=== PATIENT | female | born 1950 | race Caucasian/White ===

== ENCOUNTER 2017-04-30 05:55 | Inpatient (IN) | payer OTHER, MEDICARE ==
[~2017-04-30] VITALS: Ht 157.5 cm; Wt 62.1 kg
--- NOTE | ~2017-04-30 | CRIT ---
[facility] [place] [address] CRITICAL CARE NOTE Name: ALEXEY ANDREWS Room #: 438-P [facility] IN M.R.#: [id number] Admission: 04/30/17 Attend Phys: Alejandro Caruso Discharge: 05/04/17 Date of : 50 Report #: [id number] THIS REPORT FOR: //name// CC: Hospital Chart Alejandro Chavez HISTORY OF PRESENT ILLNESS: The patient is a very pleasant 67-year-old female I have been asked to see for further evaluation of nonspecific epigastric abdominal pain, which has occurred chronically. She presented to the hospital with increasing shortness of breath over the course of the last 72 hours and was found to have pneumonia and is currently being treated for this, bilateral lower lobe pneumonia. She takes no medications at home for her chronic abdominal discomfort. She claims that her epigastric and right upper quadrant pain are worse with deep inspiration. PAST MEDICAL HISTORY: Significant and includes multiple myeloma with stem cell transplant x 2, most recently May of 2012. She also had one in December of that year. Has a history of atrial fibrillation, double mastectomy, chickenpox. MEDICATION: List is long and includes Zovirax, Tylenol, AccuNeb, vitamin C, Beconase, Caltrate, Lomotil, Ativan, multivitamin, Compazine, venlafaxine, Effexor, vitamin E, Ultram, Benadryl, Colace, milk of mag, Neurontin, also hydrocodone as needed. FAMILY HISTORY: Noncontributory. SOCIAL HISTORY: She denies significant alcohol or tobacco consumption, but used to smoke. REVIEW OF SYSTEMS: Negative for weight loss, weakness or fatigue. She denies head, eyes, ears, nose or throat complaints. She denies chest pain, chest palpitation, chest pressure, cough, shortness of breath, wheezing, genitourinary, musculoskeletal or neuropsychiatric complaints beyond that mentioned above. PHYSICAL EXAMINATION: VITAL SIGNS: The patient is afebrile. Vital signs are stable. She is on oxygen by nasal cannula. HEENT: Nonicteric. NECK: No JVD, thyromegaly or bruits. CARDIOVASCULAR: Regular. LUNGS: Clear anteriorly. ABDOMEN: Soft with mild right upper quadrant and epigastric discomfort to deep palpation and with respiration. No stigmata of chronic liver disease. No abnormal masses or bruits. EXTREMITIES: Deferred. [address] [address] CRITICAL CARE NOTE Name: SUE ANDREWSBEBHARAT Lagos Room #: 438-P [facility] IN M.R.#: [id number] Admission: 04/30/17 Attend Phys: Alejandro Caruso Discharge: 05/04/17 Date of : 50 Report #: [id number] NEUROLOGIC: Deferred. RECTAL: Deferred. LABORATORY DATA: Pertinent labs include white count 11.9, hemoglobin 9.7, normal indices, platelet count 146. INR of 1.0. Blood gas, 7.49, 31.8, and 53.4 oxygen saturation. Serum chemistry notable for BUN 21, creatinine 0.9. Her liver tests were normal on April 30, lipase normal. IMAGING STUDIES: Reveal CT abdomen and pelvis with bilateral lower lobe atelectasis and pneumonitis. Gallbladder normal. ASSESSMENT AND PLAN: In summary, the patient has epigastric and right upper quadrant abdominal pain, which is chronic, but more significant with her pneumonia. I suspect her pain is likely secondary to pneumonia and would evaluate it as she improves. She does have anemia, but has had stem cell transplants in the past which may explain this. Perhaps an upper endoscopy may be reasonable once her pneumonia has resolved. I appreciate the opportunity to participate in her care. We will follow up at intervals. <ELECTRONICALLY SIGNED> By: Bhupendra Restrepo MD 05/06/17 0803 [id number] Jorge Luis Maloney MD /nt
--- NOTE | ~2017-04-30 | EKG ---
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
[2017-04-30 05:55] VITALS: BP 93/63
[~2017-04-30 05:55] MED LIST: ACYCLOVIR 400400 MG PO; ALBUTEROL2.5 MG/0.5 INH; ALPHA LIPOIC A600 M1 PO; APAP500 PO; ATIVAN0.5 MG PO; BECONASE AQ25 GM NS; BENADRYL25 MG PO; CALCIUM 600 +1 EAC1 PO; COLACE100 MG PO; COMPAZINE10 MG PO; GABAPENTIN 100100 MG PO; HYDROCODONE-AP1 EAC6 PO; LOMOTIL TABLET1 EACH PO; LYRICA 75 MG CA75 MG PO; MILK OF MA2400 MG/10 PO; MULTIVITAMIN PO; TRAMADOL 50 MG50 MG PO; VENLAFAXIN75 MG/1 T2 PO; VENLAFAXINE H37.5 MG PO; VITAMIN E400 UNI4 PO; VITAMIN E400 UNIT PO; VITAMINC500 PO
[2017-04-30 06:32] LABS: ABSOLUTE NEUTROPHILS 9.3 thou/uL (1.4-8.2); BASOPHILS 0.2 % (0.0-2.0); EOSINOPHILS 0.1 % (0.0-3.0); HEMATOCRIT 28.2 % (37.0-47.0); HEMOGLOBIN 9.7 gm/dL (12.0-15.0); MCH 32.6 pg (26.0-34.0); MCHC 34.4 g/dL (28.0-37.0); MCV 94.9 fL (80.0-100.0); MONOCYTES 9.7 % (1.0-8.0); PLATELET COUNT 146 thou/uL (150-400); RBC 2.97 mil/uL (4.20-5.00); RDW 16.8 % (10.5-14.5); WBC 11.9 thou/uL (4.0-11.0)
[2017-04-30 06:34] LABS: ABG SAMPLE TYPE ARTERIAL; BE(vivo) 0.9 mmol/L (-2 to +3); HCO3 23.7 mmol/L (22.0-26.0); LACTATE 1.14 mmol/L (0.5-2.0); O2(CT) 14.7 mL/dL (15.0-23.0); O2Hb 87.6 % (92.0-98.0); PCO2 31.8 mmHg (35.0-45.0); PO2 53.4 mmHg (80.0-100.0); STICK SITE R.BRACHIAL; sO2 90.6 % (92.0-98.0); tCO2 24.7 mmol/L (24.0-30.0)
[2017-04-30 06:37] LABS: MANUAL DIFF NO
[2017-04-30 06:41] LABS: ANION GAP 8 mmol/L (7-16); BUN 24 mg/dL (7-18); CALCIUM 8.3 mg/dL (8.5-10.1); CHLORIDE 104 mmol/L (98-107); CO2 29 mmol/L (21-32); CREATININE 1.2 mg/dL (0.6-1.0); GLUCOSE 126 mg/dL (74-106); POTASSIUM 3.3 mmol/L (3.5-5.1); SODIUM 141 mmol/L (136-145)
[2017-04-30 06:44] LABS: PROTIME 9.8 Seconds (9.3-11.4)
[2017-04-30 06:50] LABS: ALBUMIN 3.3 g/dL (3.4-5.0); ALKALINE PHOSPHATASE 65 U/L (46-116); MAGNESIUM 1.4 mg/dL (1.8-2.4); SGOT 20 U/L (15-37); SGPT 19 U/L (30-65); TOTAL BILIRUBIN 0.3 mg/dL (<0.1-1.0); TOTAL PROTEIN 5.5 g/dL (6.4-8.2); TROPONIN-I < 0.04 ng/mL (<0.04-0.07)
[2017-04-30 07:42] LABS: URINE BILIRUBIN NEGATIVE (Negative); URINE BLOOD TRACE (Negative); URINE COLOR YELLOW; URINE GLUCOSE-RANDOM* NEGATIVE (Negative); URINE KETONES NEGATIVE (Negative); URINE LEUKOCYTES-REFLEX NEGATIVE (Negative); URINE PROTEIN (DIPSTICK) NEGATIVE (Negative); URINE UROBILINOGEN 0.2 E.U./dl (0.2-1.0)
[2017-04-30 07:53] VITALS: BP 93/63
[2017-04-30 08:39] VITALS: BP 118/73
[2017-04-30 09:00] VITALS: BP 121/74
[2017-04-30] MEDS ORDERED: ARANESP INJECTION (11:54)
[2017-04-30] MEDS ORDERED: DEXAMETHASONE 44 M1 PO (11:55)
[2017-04-30] MEDS ORDERED: FAMCYCLOVIR 50500 M1 PO (11:56)
[2017-04-30] MEDS ORDERED: VIRACEPT PO (11:59)
[2017-04-30] MEDS ORDERED: OMEPRAZOLE40 MG PO (12:00)
[2017-04-30] MEDS ORDERED: ONDANSETRON HCL4 M2 PO (12:01)
[2017-04-30] MEDS ORDERED: PAMIDRONATE IV (12:02)
[2017-04-30] MEDS ORDERED: NOXAFIL100 MG PO (12:03)
[2017-04-30 16:00] VITALS: BP 116/80
[2017-04-30 20:44] VITALS: BP 121/82
[2017-04-30] MEDS ORDERED: UNICOMPLEX M TA1 TA1 PO (22:53)
[2017-04-30] MEDS ORDERED: VITAMIN D31000 UNIT PO (22:57)
[2017-05-01] MEDS ORDERED: MAGOX 400400 MG PO (01:42)
[2017-05-01] MEDS ORDERED: NOXAFIL100 MG PO (02:00)
[2017-05-01] MEDS ORDERED: BACTRIM DS TAB1 EACH PO (02:03)
[2017-05-01 04:05] VITALS: BP 115/58
[2017-05-01 06:35] LABS: HEMATOCRIT 24.5 % (37.0-47.0); HEMOGLOBIN 8.4 gm/dL (12.0-15.0); MCH 32.7 pg (26.0-34.0); MCHC 34.4 g/dL (28.0-37.0); RBC 2.58 mil/uL (4.20-5.00); RDW 17.4 % (10.5-14.5); WBC 19.5 thou/uL (4.0-11.0)
[2017-05-01 06:55] LABS: ALBUMIN 2.8 g/dL (3.4-5.0); CALCIUM 7.9 mg/dL (8.5-10.1); CREATININE 0.9 mg/dL (0.6-1.0); POTASSIUM 3.6 mmol/L (3.5-5.1)
[2017-05-01 07:33] VITALS: BP 122/84
[2017-05-01 15:16] VITALS: BP 129/69
[2017-05-01 19:50] VITALS: BP 131/80
[2017-05-02 04:31] VITALS: BP 146/93
[2017-05-02 08:00] VITALS: BP 146/93
[2017-05-02 16:00] VITALS: BP 122/76
[2017-05-02 19:31] VITALS: BP 130/79
[2017-05-03 04:22] VITALS: BP 127/89
[2017-05-03 08:00] VITALS: BP 135/81
[2017-05-03 10:49] LABS: HEMATOCRIT 24.6 % (37.0-47.0); HEMOGLOBIN 8.5 gm/dL (12.0-15.0); MCH 32.6 pg (26.0-34.0); MCHC 34.3 g/dL (28.0-37.0); MCV 95.1 fL (80.0-100.0); RBC 2.59 mil/uL (4.20-5.00); RDW 17.3 % (10.5-14.5); WBC 11.4 thou/uL (4.0-11.0)
[2017-05-03 16:00] VITALS: BP 129/80
[2017-05-03 19:50] VITALS: BP 137/82
[2017-05-03 22:28] VITALS: BP 135/85
[2017-05-04 04:20] VITALS: BP 140/82
[2017-05-04 08:00] VITALS: BP 131/77
[2017-05-04] MEDS ORDERED: CEFUROXIME500 MG PO (09:40)
[2017-05-04 09:47] VITALS: BP 140/82
[2017-05-04] MEDS ORDERED: PREDNISONE 20 M20 M1 PO (09:50)
== END 2017-05-04 11:40 | disposition home or self-care (01) | DRG 871 ==
LOC: ER 05:55 → 4S 07:17 → EROBS 07:17 → 4S 08:32 → ENTRNSPT 05-04 11:33 → EDTRNSPTSTS 05-04 11:34 → 4S 05-04 11:40
PROVIDERS: Emergency Medicine; Hospitalist
DX: A41.9 Sepsis, unspecified organism (principal); J18.9 Pneumonia, unspecified organism; C90.00 Multiple myeloma not having achieved remission; Z94.84 Stem cells transplant status; I48.91 Unspecified atrial fibrillation; D64.9 Anemia, unspecified; E87.6 Hypokalemia; E83.42 Hypomagnesemia; R09.02 Hypoxemia; K29.70 Gastritis, unspecified, without bleeding; Z79.899 Other long term (current) drug therapy; Z88.0 Allergy status to penicillin; Z87.891 Personal history of nicotine dependence; Z90.13 Acquired absence of bilateral breasts and nipples; Z92.21 Personal history of antineoplastic chemotherapy
CPT/HCPCS: 10100

== ENCOUNTER 2018-08-20 09:11 | Emergency (ER) | payer OTHER, MEDICARE ==
[~2018-08-20] VITALS: Ht 157.5 cm; Wt 63.5 kg
[~2018-08-20 09:11] MED LIST changes: +ARANESP INJECTION; +BACTRIM DS TAB1 EACH PO; +CEFUROXIME500 MG PO; +DEXAMETHASONE 44 M1 PO; +FAMCYCLOVIR 50500 M1 PO; +MAGOX 400400 MG PO; +NOXAFIL100 MG PO; +OMEPRAZOLE40 MG PO; +ONDANSETRON HCL4 M2 PO; +PAMIDRONATE IV; +PREDNISONE 20 M20 M1 PO; +UNICOMPLEX M TA1 TA1 PO; +VIRACEPT PO; +VITAMIN D31000 UNIT PO
[2018-08-20 09:34] LABS: HEMATOCRIT 37.9 % (37.0-47.0); HEMOGLOBIN 12.8 gm/dL (12.0-15.0); MCH 31.1 pg (26.0-34.0); MCHC 33.9 g/dL (28.0-37.0); MCV 91.8 fL (80.0-100.0); PLATELET COUNT 134 thou/uL (150-400); RBC 4.13 mil/uL (4.20-5.00); RDW 14.5 % (10.5-14.5); WBC 4.8 thou/uL (4.0-11.0)
[2018-08-20] MEDS ORDERED: PULMICORT0.5 MG/22 INH (09:39)
[2018-08-20 09:44] LABS: CALCIUM 9.4 mg/dL (8.5-10.1); CREATININE 1.2 mg/dL (0.6-1.0); POTASSIUM 4.2 mmol/L (3.5-5.1)
[2018-08-20 09:48] LABS: ALBUMIN 3.6 g/dL (3.4-5.0); TOTAL BILIRUBIN 0.3 mg/dL (<0.1-1.0); TOTAL PROTEIN 6.7 g/dL (6.4-8.2)
[2018-08-20 10:02] LABS: ABSOLUTE NEUTROPHILS 2.9 thou/uL (1.4-8.2); PLATELET ESTIMATE NORMAL
[2018-08-20] MEDS ORDERED: FLONASE 0.05%50 MCG NASAL (10:41)
[2018-08-20] MEDS ORDERED: ZOFRAN ODT4 MG PO (10:41)
[2018-08-20 10:49] LABS: URINE CLARITY CLEAR; URINE COLOR YELLOW; URINE GLUCOSE-RANDOM* NEGATIVE (Negative); URINE KETONES NEGATIVE (Negative); URINE PROTEIN (DIPSTICK) NEGATIVE (Negative); URINE SPECIFIC GRAVITY 1.005 (1.005-1.035)
[2018-08-20 10:50] LABS: URINE BILIRUBIN NEGATIVE (Negative); URINE BLOOD 3+ (Negative); URINE LEUKOCYTES NEGATIVE (Negative); URINE NITRITE NEGATIVE (Negative); URINE UROBILINOGEN 0.2 E.U./dl (0.2-1.0)
[2018-08-20 11:02] LABS: CASTS None Seen /LPF (None Seen); SQUAMOUS 0-3 Few /LPF (0-3)
[2018-08-20 11:03] LABS: BACTERIA None Seen /HPF (None Seen); CRYSTALS None Seen /LPF (None Seen); URINE RBC 3-10 Few /HPF (0-2); URINE WBC 0-5 Rare /HPF (0-5)
[2018-08-20] MEDS ORDERED: ALBUTEROL2.5 MG/31 INH (11:08)
[2018-08-20] MEDS ORDERED: PROAIR HFA8.5 GM INH (11:08)
[2018-08-20 11:17] VITALS: BP 98/73
== END 2018-08-20 11:17 | disposition home or self-care (01) ==
LOC: ER 09:11
PROVIDERS: Emergency Medicine
DX: J06.9 Acute upper respiratory infection, unspecified (principal); R11.0 Nausea; I48.91 Unspecified atrial fibrillation; Z87.891 Personal history of nicotine dependence; Z88.8 Allergy status to other drugs, medicaments and biological substances; Z88.0 Allergy status to penicillin; Z90.13 Acquired absence of bilateral breasts and nipples

== ENCOUNTER → 2019-06-28 | Outpatient (CLI) | payer OTHER, MEDICARE ==
[~2019-06-28] MED LIST changes: +ALBUTEROL2.5 MG/31 INH; +FLONASE 0.05%50 MCG NASAL; +PROAIR HFA8.5 GM INH; +PULMICORT0.5 MG/22 INH; +ZOFRAN ODT4 MG PO
== END ==
LOC: RAD 09:37
DX: J44.9 Chronic obstructive pulmonary disease, unspecified (principal); C90.00 Multiple myeloma not having achieved remission